=== PATIENT | female | born 1945 | race Hispanic/Latino ===

== ENCOUNTER 2020-03-23 07:15 | Emergency (ER) | payer MEDICARE, BC ==
[2020-03-23] MEDS ORDERED: Dexamethasone 10 MG/ML VIAL ONE (08:39)
[2020-03-23] MEDS ORDERED: Aspirin Chewable 81 MG TAB ONE (08:39)
[2020-03-23 09:05] LABS: #Lymphocytes 0.9 thou/uL (1.20-3.40); #Monocytes 0.5 thou/uL (0.11-0.59); %Basophils 0.2 % (0.0-1.0); %Eosinophils 0.3 % (0.0-10.0); %Monocytes 9.3 % (0.0-10.0); %Neutrophils 74.3 % (42.0-75.0); Hemoglobin 12.6 g/dL (12.0-16.0); Mean Corpuscular HGB CONC 31.5 g/dL (32.0-36.0); Mean Corpuscular Hemoglobin 27.5 pg (27.0-31.0); Mean Corpuscular Volume 87.2 fL (78.0-98.0); Mean Platelet Volume 8.3 fL (7.4-10.4); Platelet Count 315 thou/uL (130-400); Red Blood Cell (RBC) Count 4.57 mill/uL (4.20-5.40); White Blood Cell (WBC) Count 5.3 thou/uL (4.8-10.8)
[2020-03-23 09:09] LABS: ALT (SGPT) 22 U/L (8-55); AST (SGOT) 33 U/L (5-34); Albumin 3.5 g/dL (3.4-4.8); Alkaline Phosphatase 126 U/L (40-110); Anion Gap 14 mmol/L (10-20); BUN (Urea Nitrogen) 10 mg/dL (9.8-20.1); Bilirubin, Total 0.4 mg/dL (0.2-1.2); Calc. Creatinine Clearance 0 mL/min (70-130); Calcium 8.4 mg/dL (7.8-10.44); Carbon Dioxide 25 mmol/L (23-31); Chloride 101 mmol/L (98-107); Globulin 3.7 g/dL (2.4-3.5); Glucose 88 mg/dL (83-110); Potassium 4.4 mmol/L (3.5-5.1); Protein, Total 7.2 g/dL (6.0-8.3); Sodium 136 mmol/L (136-145)
--- NOTE | 2020-03-23 09:11 | RAD ---
Exam: Chest one view HISTORY:Dyspnea. Headache. Chills. Comparison: None FINDINGS: Cardiac silhouette: Normal Aorta: Unremarkable Pulmonary vessels: Normal Costophrenic angles: Clear LUNGS: Scattered interstitial opacities. Pneumothorax: None Osseous abnormalities: None IMPRESSION: Scattered interstitial opacities. Correlate for atypical pneumonia, including COVID pneum onia. Evaluate for COVID status.
[2020-03-23] MEDS ORDERED: Albuterol 200 PUFF (6.7GM INHALER) ONE (09:38)
[2020-03-23] MEDS ORDERED: Acetaminophen 500 MG TAB ONE (09:39)
[2020-03-23] MEDS ORDERED: Azithromycin 250 MG TAB ONE (09:39)
--- NOTE | 2020-03-23 11:19 | CT ---
CT ANGIOGRAM CHEST WITH 3D RENDERING: Date: 03/23/2020 HISTORY: Dyspnea, cough, weakness. FINDINGS: Extensive bilateral ground-glass opacity changes throughout both lungs, evidence for bilateral COVID pneumonia. Evidence for minimally enlarged pretracheal lymph node up to 1.0 cm short axis, as well as small bilateral hilar and perihilar lymph nodes bilaterally, possibly reactive nodes. No evidence of pleural effusion or pericardial effusion. Borderline enlarged subcarinal node up to 1.5 cm short axi s. No convincing CT evidence for acute pulmonary embolism. Small hiatal hernia. Liver cyst up to 4.0 cm in the lateral left lobe. IMPRESSION: 1. No convincing CT evidence for acute pulmonary embolism. 2. Extensive bilateral COVID pneumonia. 3. Borderline mediastinal and minimally enlarged hilar and perihilar lymph nodes bilaterally. 4. Other findings as above. POS: OFF
[2020-03-23 12:02] LABS: Bilirubin Negative (Negative); Blood, Urine Negative (Negative); Glucose, Urine (Dipstick) Negative (Negative); Ketone, Urine Trace mg/dL (Negative); Leukocyte Negative (Negative); Nitrite Negative (Negative); Protein, Urine (Dipstick) Negative (Neg-Trace); Urobilinogen 0.2 mg/dL (Less than 2)
[2020-03-23 12:07] LABS: Clarity Clear (Clear); Specific Gravity, Urine 1.019 (1.002-1.036)
[2020-03-23 12:48] LABS: SARS-CoV-2 MS2 Positive; SARS-CoV-2 N Gene Positive; SARS-CoV-2 S Gene Positive; SARS-CoV-2 by NAA DETECTED (NotDetected); SARS-CoV-2 orf1ab Positive
== END 2020-03-23 11:30 | disposition home or self-care (01) ==
LOC: ERS 07:15
DX: U07.1 COVID-19 (principal); J12.89 Other viral pneumonia
CPT/HCPCS: 71045; 71275; 80053; 81003; 83605; 83880; 84484; 85025; 85379; 86140; 96374; 99285; U0003; 36415; 87635; J1100

== ENCOUNTER 2022-10-26 08:09 | Outpatient (CLI) | payer BC, MEDICARE, OTHER | END 2022-10-26 08:10 | disposition home or self-care (01) | LOC: RAD 08:09 | PROVIDERS: ATTEND Family Medicine | DX: S49.92XA Unspecified injury of left shoulder and upper arm, initial encounter (principal); M19.012 Primary osteoarthritis, left shoulder ==